=== PATIENT | female | born 1975 | race Caucasian/White ===

== ENCOUNTER 2020-12-20 22:48 | Inpatient (IN) ==
[2020-12-21] MEDS ORDERED: Acetaminophen 325 MG TABLET PO PRN (01:57)
[2020-12-21] MEDS ORDERED: Ondansetron ODT 4 MG TAB.RAPDIS SL PRN (01:57)
[2020-12-21] MEDS ORDERED: Naloxone 0.4 MG/ML INJ IVP PRN ×2 (01:57→12:09)
[2020-12-21 03:03] LABS: Alanine Aminotransferase 22 Units/L (7-52); Albumin 3.9 g/dL (3.5-5.7); Albumin/Globulin Ratio 1.2 (1.1-2.2); Alkaline Phosphatase 99 Units/L (34-104); Aspartate Amino Transferase 16 Units/L (13-39); BUN/Creatinine Ratio 16 (6-26); Bilirubin,Total 0.5 mg/dL (0.3-1.0); Blood Urea Nitrogen 10 mg/dL (6-20); Calcium 9.2 mg/dL (8.6-10.3); Carbon Dioxide 24 mEq/L (23-29); Chloride 101 mEq/L (98-107); Globulin 3.3 g/dL (2.4-3.5); Glucose 108 mg/dL (70-105); Magnesium 1.9 mg/dL (1.6-2.6); Osmolality,Calculated 280 (280-300); Sodium 135 mEq/L (136-145); Total Protein 7.2 g/dL (6.4-8.9); eGFR For African Americans > 60 (> 60); eGFR For Non-African Americans > 60 (> 60)
[2020-12-21 04:01] LABS: INR 1.3; Prothrombin Time 15.3 Seconds (9.4-12.1)
[2020-12-21] MEDS: *HR* HYDROmorphone (PF) 1 MG/ML SYRINGE IVP PRN ×4 (04:16→20:28)
[2020-12-21] MEDS: 0.9 % Sodium Chloride 1,000 ML IVC SCH (04:16)
[2020-12-21] MEDS ORDERED: Cefepime HCl 2,000 MG in 0.9 % Sodium Chloride Mini Bag 100 ML IVPB SCH (06:00)
[2020-12-21] MEDS ORDERED: Vancomycin 2,000 MG/520 ML IV.SOLN IVPB SCH ×2 (06:00→18:00)
[2020-12-21] MEDS ORDERED: *HR* Propofol 200 MG/20 ML VIAL IVP ONE (09:17)
[2020-12-21] MEDS ORDERED: *HR* FentaNYL (PF) 100 MCG/2 ML VIAL ONE ×2 (09:17→11:01)
[2020-12-21] MEDS ORDERED: Lidocaine -MPF 2% 2 ML VIAL ONE (09:19)
[2020-12-21] MEDS ORDERED: *HR* Succinylcholine 200 MG/10 ML VIAL IVP ONE (09:19)
[2020-12-21] MEDS ORDERED: Ondansetron 4 MG/2 ML VIAL ONE (09:19)
[2020-12-21] MEDS ORDERED: Lidocaine -MPF 4% 5 ML AMPUL ONE (09:19)
[2020-12-21] MEDS ORDERED: *HR* Rocuronium Bromide 50 MG/5 ML VIAL ONE (09:19)
[2020-12-21] MEDS ORDERED: CefOXitin 1,000 MG VIAL ONE (10:00)
[2020-12-21] MEDS ORDERED: Acetaminophen 325 MG TABLET PO ONE (11:52)
[2020-12-21] MEDS ORDERED: 0.9 % Sodium Chloride 1,000 ML IVC SCH (12:09)
[2020-12-21 13:20] LABS: Basophils % 0.3 %; Eosinophils # 0.1 K/mcL (0.0-0.6); Hemoglobin 11.3 g/dL (11.5-15.4); Immature Granulocytes % 0.5 % (0-4); Lymphocytes # 0.6 K/mcL (0.6-4.6); Lymphocytes % 5.1 %; Mean Corpuscular HGB Conc 32.3 g/dL (31.6-35.5); Mean Corpuscular Hemoglobin 27.7 pg (28.0-33.3); Mean Corpuscular Volume 85.8 fL (83.0-100.0); Mean Platelet Volume 8.7 fL (9.4-12.4); Monocytes # 0.7 K/mcL (0.0-1.3); Monocytes % 5.6 %; Neutrophils # 10.8 K/mcL (1.6-8.9); Platelet Count 318 K/mcL (140-400); Red Blood Count 4.08 M/mcL (3.82-4.97); Red Cell Distribution Width 13.3 % (11.5-14.5); Segmented Neutrophils % 87.5 %; White Blood Count 12.3 K/mcL (4.3-11.1)
[2020-12-21 14:12] LABS: Bilirubin,Urine Negative (Negative); Blood,Urine Negative (Negative); Clarity,Urine Clear (Clear); Color,Urine Yellow (Yellow); Glucose,Urine (UA) Normal (Normal); Ketones,Urine 40 mg/dL (Negative); Leukocyte Esterase,Urine Negative (Negative); Nitrite,Urine Negative (Negative); PH,Urine 7.5 pH Units (5.0-8.0); Protein,Urine Trace mg/dL (Neg-Trace); Specific Gravity,Urine 1.022 (1.010-1.025)
[2020-12-21 14:24] LABS: Amphetamine Screen,Urine Negative ng/mL (Cutoff=1000); Barbiturate Screen,Urine Negative ng/mL (Cutoff=200); Benzodiazepines Screen,Urine Negative ng/mL (Cutoff=200); Cannabinoid Screen,Urine Negative ng/mL (Cutoff = 50); Cocaine Screen,Urine Negative ng/mL (Cutoff= 300); Opiate Screen,Urine Positive ng/mL (Cutoff=300); Phencyclidine Screen,Urine Negative ng/mL (Cutoff=25)
[2020-12-21] MEDS ORDERED: Gabapentin 300 MG CAPSULE PO PRN (17:15)
[2020-12-21] MEDS: Cefepime HCl 2,000 MG in 0.9 % Sodium Chloride Mini Bag 100 ML IVPB SCH (17:44)
[2020-12-21] MEDS: Vancomycin 2,000 MG/520 ML IV.SOLN IVPB SCH (20:06)
[2020-12-21] MEDS: Famotidine 20 MG TABLET PO SCH (20:07)
[2020-12-21] MEDS: traZODone 50 MG TABLET PO SCH (20:07)
[2020-12-21] MEDS: Cholecalciferol (D-3) 1,000 UNIT (25MCG) TABLET PO SCH (20:07)
[2020-12-21] MEDS: BuPROPion SR (12 HR) 150 MG TABLET PO SCH (20:08)
[2020-12-21] MEDS: Nystatin POWDER 30 GM BOTTLE TP SCH (22:44)
[2020-12-22] MEDS: *HR* HYDROmorphone (PF) 1 MG/ML SYRINGE IVP PRN ×4 (03:29→21:00)
[2020-12-22 04:35] LABS: Basophils # 0.1 K/mcL (0.0-0.2); Basophils % 0.4 %; Eosinophils # 0.1 K/mcL (0.0-0.6); Eosinophils % 0.5 %; Hematocrit 33.3 % (35.3-44.9); Hemoglobin 10.7 g/dL (11.5-15.4); Immature Granulocytes % 0.6 % (0-4); Lymphocytes # 1.4 K/mcL (0.6-4.6); Lymphocytes % 11.4 %; Mean Corpuscular HGB Conc 32.1 g/dL (31.6-35.5); Mean Corpuscular Volume 87.2 fL (83.0-100.0); Monocytes # 1.3 K/mcL (0.0-1.3); Neutrophils # 9.6 K/mcL (1.6-8.9); Platelet Count 342 K/mcL (140-400); Red Blood Count 3.82 M/mcL (3.82-4.97); Red Cell Distribution Width 13.4 % (11.5-14.5); Segmented Neutrophils % 77.1 %; White Blood Count 12.5 K/mcL (4.3-11.1)
[2020-12-22 04:50] LABS: BUN/Creatinine Ratio 15 (6-26); Blood Urea Nitrogen 10 mg/dL (6-20); Calcium 8.5 mg/dL (8.6-10.3); Carbon Dioxide 27 mEq/L (23-29); Chloride 104 mEq/L (98-107); Glucose 120 mg/dL (70-105); Magnesium 2.2 mg/dL (1.6-2.6); Osmolality,Calculated 284 (280-300); Potassium 3.8 mEq/L (3.5-5.1); Sodium 137 mEq/L (136-145); eGFR For African Americans > 60 (> 60); eGFR For Non-African Americans > 60 (> 60)
[2020-12-22] MEDS: Cefepime HCl 2,000 MG in 0.9 % Sodium Chloride Mini Bag 100 ML IVPB SCH ×2 (05:24→17:19)
[2020-12-22] MEDS ORDERED: Cyanocobalamin (B-12) 1,000 MCG/ML VIAL SQ ONE (09:19)
[2020-12-22] MEDS ORDERED: Tdap (Boostrix) Vaccine 0.5 ML SYRINGE IM ONE (09:21)
[2020-12-22] MEDS: *HR* Enoxaparin 40 MG/0.4 ML SYRINGE SQ SCH (11:00)
[2020-12-22] MEDS: Cholecalciferol (D-3) 1,000 UNIT (25MCG) TABLET PO SCH ×2 (11:09→20:59)
[2020-12-22] MEDS: Famotidine 20 MG TABLET PO SCH ×2 (11:10→20:59)
[2020-12-22] MEDS: BuPROPion SR (12 HR) 150 MG TABLET PO SCH ×2 (11:10→20:59)
[2020-12-22] MEDS: Gabapentin 300 MG CAPSULE PO SCH ×3 (11:10→17:22)
[2020-12-22] MEDS: carvediloL 6.25 MG TABLET PO SCH ×2 (11:10→17:45)
[2020-12-22] MEDS: Nystatin POWDER 30 GM BOTTLE TP SCH ×3 (11:11→21:42)
[2020-12-22] MEDS: Vancomycin 2,000 MG/520 ML IV.SOLN IVPB SCH ×2 (11:12→19:28)
[2020-12-22] MEDS: traZODone 50 MG TABLET PO SCH (20:59)
[2020-12-22] MEDS: Lactobacillus 1 EACH CAP.SPRINK PO SCH (21:00)
[2020-12-22] MEDS: Baclofen 10 MG TABLET PO PRN (21:00)
[2020-12-22] MEDS: Fluconazole 150 MG TABLET PO SCH (23:13)
[2020-12-23] MEDS: *HR* HYDROmorphone (PF) 1 MG/ML SYRINGE IVP PRN ×5 (01:45→23:05)
[2020-12-23 03:55] LABS: Basophils # 0.1 K/mcL (0.0-0.2); Basophils % 1.1 %; Eosinophils # 0.4 K/mcL (0.0-0.6); Eosinophils % 5.2 %; Hematocrit 32.1 % (35.3-44.9); Immature Granulocytes % 1.3 % (0-4); Lymphocytes % 25.7 %; Mean Corpuscular HGB Conc 31.2 g/dL (31.6-35.5); Mean Corpuscular Hemoglobin 27.5 pg (28.0-33.3); Mean Corpuscular Volume 88.4 fL (83.0-100.0); Mean Platelet Volume 8.8 fL (9.4-12.4); Monocytes # 0.8 K/mcL (0.0-1.3); Monocytes % 10.7 %; Neutrophils # 4.4 K/mcL (1.6-8.9); Platelet Count 298 K/mcL (140-400); Red Blood Count 3.63 M/mcL (3.82-4.97); Red Cell Distribution Width 13.6 % (11.5-14.5); White Blood Count 7.8 K/mcL (4.3-11.1)
[2020-12-23 04:15] LABS: BUN/Creatinine Ratio 14 (6-26); Blood Urea Nitrogen 9 mg/dL (6-20); Calcium 8.5 mg/dL (8.6-10.3); Carbon Dioxide 26 mEq/L (23-29); Chloride 106 mEq/L (98-107); Glucose 105 mg/dL (70-105); Magnesium 2.2 mg/dL (1.6-2.6); Osmolality,Calculated 283 (280-300); Potassium 4.1 mEq/L (3.5-5.1); Sodium 137 mEq/L (136-145); eGFR For African Americans > 60 (> 60); eGFR For Non-African Americans > 60 (> 60)
[2020-12-23] MEDS: Cefepime HCl 2,000 MG in 0.9 % Sodium Chloride Mini Bag 100 ML IVPB SCH ×2 (06:16→18:25)
[2020-12-23] MEDS: Cholecalciferol (D-3) 1,000 UNIT (25MCG) TABLET PO SCH ×2 (10:25→21:26)
[2020-12-23] MEDS: Famotidine 20 MG TABLET PO SCH ×2 (10:26→21:27)
[2020-12-23] MEDS: Gabapentin 300 MG CAPSULE PO SCH ×3 (10:26→18:24)
[2020-12-23] MEDS: BuPROPion SR (12 HR) 150 MG TABLET PO SCH ×2 (10:27→21:27)
[2020-12-23] MEDS: carvediloL 6.25 MG TABLET PO SCH ×2 (10:27→18:24)
[2020-12-23] MEDS: *HR* Enoxaparin 40 MG/0.4 ML SYRINGE SQ SCH (10:28)
[2020-12-23] MEDS: Baclofen 10 MG TABLET PO PRN ×2 (10:34→21:27)
[2020-12-23] MEDS: Lactobacillus 1 EACH CAP.SPRINK PO SCH ×2 (10:34→21:26)
[2020-12-23] MEDS: Nystatin POWDER 30 GM BOTTLE TP SCH ×3 (10:45→21:27)
[2020-12-23] MEDS: Vancomycin 2,000 MG/520 ML IV.SOLN IVPB SCH (12:48)
[2020-12-23] MEDS: Ondansetron ODT 4 MG TAB.RAPDIS SL PRN (13:25)
[2020-12-23] MEDS: Fluconazole 150 MG TABLET PO SCH (13:48)
[2020-12-23] MEDS: Acetaminophen 325 MG TABLET PO PRN (13:51)
[2020-12-23] MEDS: traZODone 50 MG TABLET PO SCH (21:26)
[2020-12-24 00:37] LABS: Basophils # 0.1 K/mcL (0.0-0.2); Basophils % 0.9 %; Eosinophils # 0.6 K/mcL (0.0-0.6); Eosinophils % 5.4 %; Hematocrit 34.8 % (35.3-44.9); Hemoglobin 10.9 g/dL (11.5-15.4); Immature Granulocytes % 1.9 % (0-4); Lymphocytes # 2.4 K/mcL (0.6-4.6); Lymphocytes % 21.6 %; Mean Corpuscular HGB Conc 31.3 g/dL (31.6-35.5); Mean Corpuscular Hemoglobin 27.6 pg (28.0-33.3); Mean Corpuscular Volume 88.1 fL (83.0-100.0); Monocytes # 1.1 K/mcL (0.0-1.3); Monocytes % 9.8 %; Neutrophils # 6.8 K/mcL (1.6-8.9); Platelet Count 337 K/mcL (140-400); Red Blood Count 3.95 M/mcL (3.82-4.97); Red Cell Distribution Width 13.3 % (11.5-14.5); Segmented Neutrophils % 60.4 %; White Blood Count 11.2 K/mcL (4.3-11.1)
[2020-12-24 00:46] LABS: Alanine Aminotransferase 25 Units/L (7-52); Albumin 3.7 g/dL (3.5-5.7); Albumin/Globulin Ratio 1.2 (1.1-2.2); Alkaline Phosphatase 83 Units/L (34-104); Aspartate Amino Transferase 15 Units/L (13-39); BUN/Creatinine Ratio 18 (6-26); Bilirubin,Indirect 0.3 mg/dL (0.0-1.0); Bilirubin,Total 0.3 mg/dL (0.3-1.0); Blood Urea Nitrogen 12 mg/dL (6-20); Calcium 8.9 mg/dL (8.6-10.3); Carbon Dioxide 27 mEq/L (23-29); Chloride 103 mEq/L (98-107); Glucose 126 mg/dL (70-105); Iron 51 mcg/dL (50-170); Magnesium 2.2 mg/dL (1.6-2.6); Osmolality,Calculated 287 (280-300); Sodium 138 mEq/L (136-145); Total Protein 6.7 g/dL (6.4-8.9); eGFR For African Americans > 60 (> 60); eGFR For Non-African Americans > 60 (> 60)
[2020-12-24] MEDS ORDERED: Vancomycin 2,000 MG/520 ML IV.SOLN IVPB SCH (01:00)
[2020-12-24 01:04] LABS: Ferritin 159 ng/mL (10-120)
[2020-12-24 01:28] LABS: Folate > 22.3 ng/mL (3.0-16.0); Vitamin B12 1197 pg/mL (250-1100)
[2020-12-24 03:02] LABS: % Iron Saturation 18 % (15-50); Transferrin 201 mg/dL (203-362)
[2020-12-24] MEDS: *HR* HYDROmorphone (PF) 1 MG/ML SYRINGE IVP PRN ×4 (04:28→19:59)
[2020-12-24] MEDS: Cefepime HCl 2,000 MG in 0.9 % Sodium Chloride Mini Bag 100 ML IVPB SCH ×2 (06:23→17:25)
[2020-12-24] MEDS: *HR* Enoxaparin 40 MG/0.4 ML SYRINGE SQ SCH (06:23)
[2020-12-24] MEDS: Vancomycin 1,750 MG/517.5 ML IV.SOLN IVPB SCH ×2 (08:49→17:26)
[2020-12-24] MEDS: Lactobacillus 1 EACH CAP.SPRINK PO SCH ×2 (08:50→19:57)
[2020-12-24] MEDS: BuPROPion SR (12 HR) 150 MG TABLET PO SCH ×2 (08:50→19:58)
[2020-12-24] MEDS: Famotidine 20 MG TABLET PO SCH ×2 (08:50→19:57)
[2020-12-24] MEDS: Cholecalciferol (D-3) 1,000 UNIT (25MCG) TABLET PO SCH ×2 (08:50→19:57)
[2020-12-24] MEDS: Gabapentin 300 MG CAPSULE PO SCH ×3 (08:50→17:25)
[2020-12-24] MEDS: carvediloL 6.25 MG TABLET PO SCH ×2 (08:50→17:25)
[2020-12-24] MEDS: Nystatin POWDER 30 GM BOTTLE TP SCH ×3 (08:51→20:02)
[2020-12-24] MEDS: Fluconazole 150 MG TABLET PO SCH (08:52)
[2020-12-24] MEDS: 0.9 % Sodium Chloride 1,000 ML IVC SCH (10:14)
[2020-12-24] MEDS: Ondansetron ODT 4 MG TAB.RAPDIS SL PRN ×2 (10:31→19:57)
[2020-12-24] MEDS: traZODone 50 MG TABLET PO SCH (19:58)
[2020-12-24] MEDS: Baclofen 10 MG TABLET PO PRN (20:00)
[2020-12-25] MEDS: Vancomycin 1,750 MG/517.5 ML IV.SOLN IVPB SCH ×3 (00:40→17:18)
[2020-12-25] MEDS: *HR* HYDROmorphone (PF) 1 MG/ML SYRINGE IVP PRN ×4 (00:40→20:09)
[2020-12-25] MEDS: Ondansetron ODT 4 MG TAB.RAPDIS SL PRN ×3 (06:01→22:57)
[2020-12-25] MEDS: Cefepime HCl 2,000 MG in 0.9 % Sodium Chloride Mini Bag 100 ML IVPB SCH ×2 (06:02→17:17)
[2020-12-25] MEDS: *HR* Enoxaparin 40 MG/0.4 ML SYRINGE SQ SCH (06:03)
[2020-12-25] MEDS: Famotidine 20 MG TABLET PO SCH ×2 (07:21→20:09)
[2020-12-25] MEDS: Fluconazole 150 MG TABLET PO SCH (07:21)
[2020-12-25] MEDS: BuPROPion SR (12 HR) 150 MG TABLET PO SCH ×2 (07:21→20:09)
[2020-12-25] MEDS: Cholecalciferol (D-3) 1,000 UNIT (25MCG) TABLET PO SCH ×2 (07:21→20:09)
[2020-12-25] MEDS: Lactobacillus 1 EACH CAP.SPRINK PO SCH ×2 (07:21→20:09)
[2020-12-25] MEDS: carvediloL 6.25 MG TABLET PO SCH ×2 (07:22→17:17)
[2020-12-25] MEDS: Nystatin POWDER 30 GM BOTTLE TP SCH ×3 (07:22→20:10)
[2020-12-25] MEDS: Gabapentin 300 MG CAPSULE PO SCH ×3 (07:22→17:17)
[2020-12-25 09:20] LABS: Basophils # 0.1 K/mcL (0.0-0.2); Eosinophils # 0.5 K/mcL (0.0-0.6); Eosinophils % 5.2 %; Hematocrit 34.2 % (35.3-44.9); Hemoglobin 10.6 g/dL (11.5-15.4); Immature Granulocytes % 1.7 % (0-4); Lymphocytes # 1.6 K/mcL (0.6-4.6); Lymphocytes % 17.2 %; Mean Corpuscular Hemoglobin 27.6 pg (28.0-33.3); Mean Corpuscular Volume 89.1 fL (83.0-100.0); Monocytes # 1.1 K/mcL (0.0-1.3); Monocytes % 11.4 %; Neutrophils # 6.1 K/mcL (1.6-8.9); Platelet Count 334 K/mcL (140-400); Red Blood Count 3.84 M/mcL (3.82-4.97); Red Cell Distribution Width 13.3 % (11.5-14.5); Segmented Neutrophils % 63.5 %; White Blood Count 9.5 K/mcL (4.3-11.1)
[2020-12-25 09:52] LABS: BUN/Creatinine Ratio 13 (6-26); Blood Urea Nitrogen 10 mg/dL (6-20); Calcium 8.6 mg/dL (8.6-10.3); Carbon Dioxide 29 mEq/L (23-29); Chloride 103 mEq/L (98-107); Glucose 110 mg/dL (70-105); Magnesium 2.2 mg/dL (1.6-2.6); Osmolality,Calculated 286 (280-300); Potassium 4.3 mEq/L (3.5-5.1); Sodium 138 mEq/L (136-145); Vancomycin,Trough 28 mcg/mL (5-10); eGFR For African Americans > 60 (> 60); eGFR For Non-African Americans > 60 (> 60)
[2020-12-25] MEDS: Baclofen 10 MG TABLET PO PRN (17:17)
[2020-12-25] MEDS: traZODone 50 MG TABLET PO SCH (20:08)
[2020-12-25] MEDS: Acetaminophen 325 MG TABLET PO PRN (22:57)
[2020-12-26] MEDS: Vancomycin 1,750 MG/517.5 ML IV.SOLN IVPB SCH ×3 (00:37→16:47)
[2020-12-26] MEDS: *HR* HYDROmorphone (PF) 1 MG/ML SYRINGE IVP PRN ×5 (00:38→18:50)
[2020-12-26 03:24] LABS: Basophils # 0.1 K/mcL (0.0-0.2); Basophils % 0.8 %; Eosinophils # 0.6 K/mcL (0.0-0.6); Eosinophils % 5.1 %; Hematocrit 35.3 % (35.3-44.9); Hemoglobin 10.8 g/dL (11.5-15.4); Immature Granulocytes % 1.9 % (0-4); Mean Corpuscular HGB Conc 30.6 g/dL (31.6-35.5); Mean Corpuscular Hemoglobin 27.2 pg (28.0-33.3); Mean Corpuscular Volume 88.9 fL (83.0-100.0); Mean Platelet Volume 8.8 fL (9.4-12.4); Monocytes # 1.2 K/mcL (0.0-1.3); Monocytes % 10.8 %; Neutrophils # 7.1 K/mcL (1.6-8.9); Platelet Count 347 K/mcL (140-400); Red Blood Count 3.97 M/mcL (3.82-4.97); Red Cell Distribution Width 13.1 % (11.5-14.5); Segmented Neutrophils % 63.4 %; White Blood Count 11.2 K/mcL (4.3-11.1)
[2020-12-26 03:44] LABS: Blood Urea Nitrogen 14 mg/dL (6-20); Calcium 8.6 mg/dL (8.6-10.3); Carbon Dioxide 27 mEq/L (23-29); Chloride 102 mEq/L (98-107); Glucose 103 mg/dL (70-105); Magnesium 2.2 mg/dL (1.6-2.6); Osmolality,Calculated 285 (280-300); Potassium 4.1 mEq/L (3.5-5.1); Sodium 137 mEq/L (136-145)
[2020-12-26 03:45] LABS: BUN/Creatinine Ratio 20 (6-26); eGFR For African Americans > 60 (> 60); eGFR For Non-African Americans > 60 (> 60)
[2020-12-26] MEDS: Cefepime HCl 2,000 MG in 0.9 % Sodium Chloride Mini Bag 100 ML IVPB SCH ×3 (06:14→21:01)
[2020-12-26] MEDS: *HR* Enoxaparin 40 MG/0.4 ML SYRINGE SQ SCH (06:14)
[2020-12-26] MEDS: Ondansetron ODT 4 MG TAB.RAPDIS SL PRN ×2 (06:15→16:43)
[2020-12-26] MEDS: Lactobacillus 1 EACH CAP.SPRINK PO SCH ×2 (08:59→21:01)
[2020-12-26] MEDS: BuPROPion SR (12 HR) 150 MG TABLET PO SCH ×2 (08:59→21:01)
[2020-12-26] MEDS: Famotidine 20 MG TABLET PO SCH ×2 (08:59→21:01)
[2020-12-26] MEDS: Cholecalciferol (D-3) 1,000 UNIT (25MCG) TABLET PO SCH ×2 (08:59→21:01)
[2020-12-26] MEDS: carvediloL 6.25 MG TABLET PO SCH ×2 (09:00→16:43)
[2020-12-26] MEDS: Gabapentin 300 MG CAPSULE PO SCH ×3 (09:01→17:20)
[2020-12-26] MEDS: Baclofen 10 MG TABLET PO PRN ×2 (09:09→21:09)
[2020-12-26] MEDS: Nystatin POWDER 30 GM BOTTLE TP SCH ×3 (10:59→21:10)
[2020-12-26] MEDS: Acetaminophen 325 MG TABLET PO PRN (17:29)
[2020-12-26] MEDS: traZODone 50 MG TABLET PO SCH (21:01)
[2020-12-27] MEDS: *HR* HYDROmorphone (PF) 1 MG/ML SYRINGE IVP PRN ×3 (00:08→13:29)
[2020-12-27] MEDS: Vancomycin 1,750 MG/517.5 ML IV.SOLN IVPB SCH ×2 (00:09→07:55)
[2020-12-27] MEDS: Ondansetron ODT 4 MG TAB.RAPDIS SL PRN ×2 (05:14→16:43)
[2020-12-27 05:41] LABS: Basophils # 0.1 K/mcL (0.0-0.2); Basophils % 0.8 %; Eosinophils # 0.5 K/mcL (0.0-0.6); Eosinophils % 5.9 %; Hematocrit 36.7 % (35.3-44.9); Hemoglobin 11.9 g/dL (11.5-15.4); Immature Granulocytes % 1.6 % (0-4); Lymphocytes # 1.7 K/mcL (0.6-4.6); Lymphocytes % 19.9 %; Mean Corpuscular HGB Conc 32.4 g/dL (31.6-35.5); Mean Corpuscular Hemoglobin 28.2 pg (28.0-33.3); Mean Platelet Volume 8.9 fL (9.4-12.4); Monocytes # 0.8 K/mcL (0.0-1.3); Monocytes % 9.1 %; Neutrophils # 5.3 K/mcL (1.6-8.9); Platelet Count 342 K/mcL (140-400); Red Blood Count 4.22 M/mcL (3.82-4.97); Red Cell Distribution Width 13.3 % (11.5-14.5); Segmented Neutrophils % 62.7 %; White Blood Count 8.5 K/mcL (4.3-11.1)
[2020-12-27 05:50] LABS: BUN/Creatinine Ratio 21 (6-26); Blood Urea Nitrogen 14 mg/dL (6-20); Calcium 8.9 mg/dL (8.6-10.3); Carbon Dioxide 29 mEq/L (23-29); Chloride 102 mEq/L (98-107); Glucose 104 mg/dL (70-105); Magnesium 2.2 mg/dL (1.6-2.6); Osmolality,Calculated 285 (280-300); Potassium 4.3 mEq/L (3.5-5.1); Sodium 137 mEq/L (136-145); eGFR For African Americans > 60 (> 60); eGFR For Non-African Americans > 60 (> 60)
[2020-12-27] MEDS: Cefepime HCl 2,000 MG in 0.9 % Sodium Chloride Mini Bag 100 ML IVPB SCH (06:21)
[2020-12-27] MEDS: *HR* Enoxaparin 40 MG/0.4 ML SYRINGE SQ SCH (06:21)
[2020-12-27] MEDS: Gabapentin 300 MG CAPSULE PO SCH ×2 (07:55→11:45)
[2020-12-27] MEDS: carvediloL 6.25 MG TABLET PO SCH (07:55)
[2020-12-27] MEDS: BuPROPion SR (12 HR) 150 MG TABLET PO SCH (07:56)
[2020-12-27] MEDS: Famotidine 20 MG TABLET PO SCH (07:56)
[2020-12-27] MEDS: Lactobacillus 1 EACH CAP.SPRINK PO SCH (07:56)
[2020-12-27] MEDS: Cholecalciferol (D-3) 1,000 UNIT (25MCG) TABLET PO SCH (07:56)
[2020-12-27] MEDS: Acetaminophen 325 MG TABLET PO PRN ×2 (08:05→16:43)
[2020-12-27] MEDS: Nystatin POWDER 30 GM BOTTLE TP SCH ×2 (08:05→14:11)
[2020-12-27 11:13] VITALS: BP 128/76; PULSE 68; TEMP 98; O2SAT 95
== END 2020-12-27 17:30 | disposition home or self-care (01) | DRG 580 ==
LOC: 3NENU → SUATTDRO 12-21 01:07
PROVIDERS: ADMIT Student in an Organized Health Care Education/Training Program; ATTEND Pharmacist